=== PATIENT | male | born 1990 | race Caucasian/White ===

== ENCOUNTER 2019-01-27 17:50 | Emergency (ER) | payer SELFPAY ==
[2019-01-27] MEDS ORDERED: SODIUM CHLORIDE 0.9% (FLUSH) 10 ML SYG IV PRN (17:52)
[2019-01-27] MEDS ORDERED: SODIUM CHLORIDE 0.9% 1000ML 1,000 ML IVS PRN (17:52)
[2019-01-27] MEDS ORDERED: fentaNYL CITRATE INJ 50 MCG/ML AMP ONE (17:59)
[2019-01-27] MEDS ORDERED: fentaNYL CITRATE INJ 50 MCG/ML AMP IV ONE ×2 (18:01→18:56)
--- NOTE | 2019-01-27 18:34 | RAD ---
EXAM DESCRIPTION: Chest,1 View CLINICAL HISTORY: 28 years Male, kicked by horse COMPARISON: None. TECHNIQUE: AP portable chest. FINDINGS: Heart size is large with normal pulmonary vascularity. No consolidating infiltrate. No pulmonary mass or worrisome nodule. No pneumothorax or pleural effusion. Question irregularity of the anterior left sixth rib which could be a fracture. Correlation with rib series. IMPRESSION: Question anterior left lower rib fractures. Electronically signed by: Cody Kaufman MD 01/27/2019 6:31 PM CDT
--- NOTE | 2019-01-27 19:14 | ED.PDOC ---
History of Present Illness - General Chief Complaint: Trauma Stated Complaint: KICKED BY HORSE IN CHEST Time Seen by Provider: 01/27/19 18:25 Source: patient Exam Limitations: no limitations - History of Present Illness Initial Comments: PT WAS ROPING LARGE CALF WHEN THE ROPE CAME ACROSS THE LEFT SIDE OF HIS LEG. HE CAME OFF THE SADDLE AND HIT THE HORN WITH HIS GROIN. CAME OFF THE HORSE THEN WAS KICKED IN THE L CHEST/LUQ. C/O CHEST, ABDOMINAL, AND TESTICULAR PAIN. 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 Denies: chills, fever EENTM: States: no symptoms reported Respiratory: States: short of breath. Denies: cough Cardiology: States: chest pain. Denies: palpitations, syncope Gastrointestinal/Abdominal: States: abdominal pain. Denies: diarrhea, nausea Genitourinary: States: other - TESTICULAR PAIN. Denies: hematuria Musculoskeletal: Denies: back pain, neck pain Skin: States: other - ABRASIONS L CHEST Neurological: States: no symptoms reported Endocrine: States: no symptoms reported Hematologic/Lymphatic: States: no symptoms reported Past Medical History (General) - Patient Medical History Hx Seizures: No Hx Stroke: No Hx Asthma: No Hx Cardiac Disorders: No Hx Congestive Heart Failure: No Hx Hypertension: No Hx Diabetes: No Hx Gastroesophageal Reflux: No Surgical History: no surgical history - Social History Hx Tobacco Use: No Family Medical History - Family History Mother Family History: No Known Physical Exam - Physical Exam General Appearance: Alert, Other - MODERATE DISTRESS DTP Eye Exam: bilateral normal Ears, Nose, Throat: hearing grossly normal, normal ENT inspection Neck: non-tender, full range of motion, supple Respiratory: lungs clear, normal breath sounds Cardiovascular/Chest: regular rate, rhythm, no murmur, other - ABRASIONS AND SLIGHT DEFORMITY TO L LOWER THORAX/LUQ. TTP, NO CREPITUS, NO SUBQ AIR. Gastrointestinal/Abdominal: soft, no organomegaly, other - MOD TTP LUQ Back Exam: normal inspection, no CVA tenderness Extremity: normal range of motion, other - PAIN TTP FEET JOCELIN AND ECCHYMOSIS FROM PREVIOUS INJURY 2 WEEKS AGO. NO ACUTE TRAUMA, Neurologic: no motor/sensory deficits, alert, oriented x 3 Skin Exam: normal color, warm/dry, other - ABRASIONS NOTED. Lymphatic: no adenopathy Comments: G/U NL CIRCUMCISED MALE, ABRASION L HEMISCROTUM, LINEAR ABRASION L PELVIS, TESTICLES TENDER JOCELIN NO SWELLING, SOMEWHAT DIFFICULT TO ASSESS SECONDARY TO PAIN AND PT'S INABILITY TO COOPERATE. Progress - Progress Progress: 01/27/19 21:21 PT'S SCROTUM UNCHANGED, REFUSES TO BE TRANSPORTED BY AMBULANCE. SUGAR TONG SPLINT APPLIED BY PHYSICIAN, NVI POST APPLICATION. - EKG/XRAY/CT XRAY: TESTICULAR SONO, SCROTAL HEMATOMA, TESTICLE GOOD FLOW. Xray Comments: FOREARM, MIDSHAFT ULNAR FX. CXR NO PTX, POSS L LOWER RIB FX'S. CT: CHEST/ABD/PELV. RIB FX'S NO OTHER INJURY Procedures - Splinting Right Arm Hand-Made Type: fiberglass Splint: sugar-tong Pre-Proc Neuro Vasc Exam: normal Post-Proc Neuro Vasc Exam: normal Departure - Departure Clinical Impression: Traumatic scrotal hematoma Qualifiers: Encounter type: initial encounter Qualified Code(s): S30.22XA - Contusion of scrotum and testes, initial encounter Ulnar fracture Qualifiers: Encounter type: initial encounter Ulna location: shaft Fracture type: closed Fracture morphology: transverse Fracture alignment: displaced Laterality: right Qualified Code(s): S52.221A - Displaced transverse fracture of shaft of right ulna, initial encounter for closed fracture Ribs, multiple fractures Qualifiers: Encounter type: initial encounter Fracture type: closed Laterality: left Qualified Code(s): S22.42XA - Multiple fractures of ribs, left side, initial encounter for closed fracture Time of Disposition: 21:32 Disposition: Transfer to Hospital Condition: Good Departure Forms: ED Discharge - Pt. Copy, Patient Portal Self Enrollment Instructions: DI for Trauma Transfer to Outside Facility - Transfer Information Accepting Provider:: DR VICENTE Accepting Facility: [facility] Reason for Transfer: required specialist not available - D/W DR LUKE, NEEDS UROLOGICAL CONSULTATION. 1999
--- NOTE | 2019-01-27 19:22 | CT ---
EXAM DESCRIPTION: Chest w/o Contrast CLINICAL HISTORY: kicked by horse COMPARISON: None Available. TECHNIQUE: Contiguous axial images of the chest were obtained from the thoracic inlet up to the upper abdomen followed by reconstruction images. This exam was performed according to our departmental dose-optimization program, which includes automated exposure control, adjustment of the mA and/or kV according to patient size and/or use of iterative reconstruction technique. FINDINGS: There are fractures of the left anterior sixth, seventh and eighth ribs. Please note that below this level the ribs are not fully imaged. The aorta is of normal contour and tapering. There is no pericardial or pleural fluid collection. There is no parenchymal consolidation or pneumothorax. IMPRESSION: Multiple left rib fractures. No other acute abnormality. Electronically signed by: Brooks Leos 01/27/2019 7:20 PM CDT
--- NOTE | 2019-01-27 19:32 | CT ---
EXAM DESCRIPTION: Abdomen/Pelvis w/Contrast CLINICAL HISTORY: kicked by horse COMPARISON: None Available TECHNIQUE: Contiguous axial images of the abdomen and pelvis were obtained after the administration of intravenous contrast followed by reconstruction images.This exam was performed according to our departmental dose-optimization program, which includes automated exposure control, adjustment of the mA and/or kV according to patient size and/or use of iterative reconstruction technique. FINDINGS: There is a mildly displaced fracture of the right ulna. 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 Partially seen is a possible left hydrocele. The scrotum is not fully imaged. Sonography is recommended if there is clinical concern. Increased attenuation in the left inguinal canal could be fluid or blood. Again, sonography would offer additional information if there is clinical concern for injury in this region. There is a 6 mm low-attenuation nonspecific lesion of the right liver. This could be a cyst. There are fractures of the left sixth seventh eighth and ninth ribs. There is overlying hematoma and soft tissue swelling. No pneumothorax or significant pleural effusion. No other acute or metastatic abnormality is seen. The liver, spleen, pancreas and kidneys are within normal limits. The gallbladder is unremarkable. Adrenal glands are within normal limits. Aorta is normal in caliber and tapering. No significant free fluid. No free air. No bowel wall thickening. There is no stranding of the mesenteric fat. No other fracture or dislocation. IMPRESSION: Multiple left rib fractures. Adjacent soft tissue injury. Right ulna fracture. Possible blood or fluid in the left inguinal canal and left scrotum. Sonography of the scrotum would offer additional information if desired. Electronically signed by: Brooks Leos 01/27/2019 7:29 PM CDT
--- NOTE | 2019-01-27 19:37 | US ---
EXAM DESCRIPTION: Testicular CLINICAL HISTORY: 28 years Male KICKED BY HORSE COMPARISON: None. TECHNIQUE: Real-time, feng scale sonographic and duplex imaging performed to evaluate the testicles FINDINGS: Left testis is heterogeneous in echogenicity and there is complex fluid adjacent to the left testis, likely hemorrhage. There is flow in the left testis. Left testis measures 36 x 25 x 24 mm, right testis 54 x 29 x 19 mm. Each epididymis is unremarkable. Right testicle is normal in size and echogenicity. Normal blood flow to the right testicle. No evidence of intratesticular mass. Epididymides are unremarkable. IMPRESSION: Left testicular contusion and edema with hemorrhage. Hemorrhage is seen in the left scrotum and probably extends into the left inguinal canal based on today's CT abdomen and pelvis. There is however flow in the left testis. Follow-up ultrasound of the left testis is recommended to document absence of underlying left testicular lesion. The right testis appears normal. Electronically signed by: Brooks Leos 01/27/2019 7:33 PM CDT
--- NOTE | 2019-01-27 20:23 | RAD ---
EXAM DESCRIPTION: Forearm, right CLINICAL HISTORY: 28 years Male fx COMPARISON: None. TECHNIQUE: RIGHT forearm, two views FINDINGS: There is a transversely oriented fracture of the midshaft of the right ulna. Radius appears intact. IMPRESSION: Transversely oriented fracture of the midshaft of the ulna Electronically signed by: Chelo Ryder MD 01/27/2019 8:20 PM CDT
[2019-01-27] MEDS ORDERED: KETOROLAC TROMETHAMINE INJ 30 MG/ML VIAL IV ONE (21:32)
[2019-01-27 22:01] VITALS: BP 137/82; TEMP 97; O2SAT 98
== END 2019-01-27 21:40 | disposition short-term general hospital (02) ==
LOC: ER 17:50
DX: S22.42XA Multiple fractures of ribs, left side, initial encounter for closed fracture (principal); S52.221A Displaced transverse fracture of shaft of right ulna, initial encounter for closed fracture; S30.22XA Contusion of scrotum and testes, initial encounter; W55.12XA Struck by horse, initial encounter; W22.8XXA Striking against or struck by other objects, initial encounter; Y93.52 Activity, horseback riding; Y92.9 Unspecified place or not applicable
CPT/HCPCS: 36415; 71045; 71250; 73090; 74177; 76870; 80053; 82150; 85025; 85610; 85730; 93005; 94760; J1885; J3010; J7030